=== PATIENT | male | born 1990 | race Caucasian/White ===

== ENCOUNTER 2016-11-05 00:29 | Emergency (ER) | payer OTHER ==
[2016-11-05 00:37] VITALS: RESP 16; TEMP 98.2; O2SAT 94
--- NOTE | 2016-11-05 01:14 | EDPHY ---
H & P Stated Complaint: worried about head injury post fall d/t intoxication and LOC 2 hours ago Time Seen by Provider: 11/05/16 00:53 HPI/ROS: HPI The patient presents with fall and headache which occurred at about 10:30 p.m. tonight. He was drinking alcohol and uses marijuana. He was walking down a flight of stairs to use the bathroom when his vision got blurry and he developed a headache. He fell landing on his face and lost consciousness. He says he then got up and could have fallen again. Afterwards he has had a left- sided frontal throbbing headache which has been constant and moderate in severity. He does not have changes to his vision, vomiting.. REVIEW OF SYSTEMS Constitutional: No fever, no chills. Eyes: No discharge. ENT: No sore throat. Cardiovascular: No chest pain, no palpitations. Respiratory: No cough, no shortness of breath. Gastrointestinal: No abdominal pain, no vomiting. Genitourinary: No hematuria. Musculoskeletal: No back pain. Skin: No rashes. Neurological: Positive for headache. PMHx: Healthy Soc Hx: Alcohol and marijuana use PHYSICAL General Appearance: Alert, no distress Head: Tenderness to his left frontal region without overlying skin changes Eyes: Pupils equal and round no pallor or injection ENT, Mouth: Mucous membranes moist Respiratory: There are no retractions, lungs are clear to auscultation Cardiovascular: Regular rate and rhythm Gastrointestinal: Abdomen is soft and non-tender, no masses, bowel sounds normal Neurological: A&O, cranial nerves 2-12 intact, 5/5 strength in upper and lower extremities which is symmetric moves all extremities Skin: Warm and dry, abrasion to left chin Musculoskeletal: Neck is supple non tender Extremities: symmetrical, full range of motion Psychiatric: Patient is oriented X 3, there is no agitation Source: Patient Exam Limitations: No limitations - Personal History Current Tetanus/Diphtheria Vaccine: Yes - Medical/Surgical History Hx Asthma: No Hx Chronic Respiratory Disease: No Hx Diabetes: No Hx Cardiac Disease: No Hx Renal Disease: No Hx Cirrhosis: No Hx Alcoholism: No Hx HIV/AIDS: No Hx Splenectomy or Spleen Trauma: No Other PMH: PSHx: wisdom tooth extraction. PMHx: denies - Social History Smoking Status: Never smoked Constitutional: Initial Vital Signs Temperature (C) 36.8 C 11/05/16 00:33 Heart Rate 108 H 11/05/16 00:33 Respiratory Rate 16 11/05/16 00:33 Blood Pressure 107/95 H 11/05/16 00:33 O2 Sat (%) 94 11/05/16 00:33 O2 Delivery Mode Room Air Allergies/Adverse Reactions: No Known Allergies Allergy (Unverified 11/05/16 00:33) Home Medications: Medication Instructions Recorded NK [No Known Home Meds] 11/05/16 Medical Decision Making - Diagnostics EKG Interpretation: EKG: Complete interpretation has been separately recorded in the [facility] archive. Summary impression: Normal sinus rhythm Imaging Results: CT of head noncontrast demonstrates no acute intracranial injury, discussed with the radiologist hall monitor. Imaging: Discussed imaging studies w/ order caller Radiologist Differential Diagnosis: This is a 25-year-old man who presents from home after drinking alcohol and using marijuana, then with a syncopal event leading to a fall, landing on his head. Now with a headache without any nausea vomiting or vision changes. Plan for EKG and CT scan of head. In the emergency room, the patient remained stable. EKG and CT of head were both unremarkable. I feel he is likely suffering from a concussion currently after having a syncopal event which seems to be vasovagal from alcohol and marijuana use tonight. He generally feels well with a mild headache. He can go home with his friend who is at the bedside. He will be discharged from the emergency room in good condition. Departure - Departure Disposition: Home, Routine, Self-Care Clinical Impression: Alcoholic intoxication Qualifiers: Complication of substance-induced condition: uncomplicated Qualified Code(s): F10.120 - Alcohol abuse with intoxication, uncomplicated Syncope Qualifiers: Syncope type: unspecified Qualified Code(s): R55 - Syncope and collapse Head injury Qualifiers: Encounter type: initial encounter Qualified Code(s): S09.90XA - Unspecified injury of head, initial encounter Condition: Good Instructions: Head Injury (ED) Referrals: Bella Simmons MD [Medical Doctor] - As per Instructions
--- NOTE | 2016-11-05 01:36 | CPEKG ---
Heart Rate: 71 RR Interval: 845 P-R Interval: 160 QRSD Interval: 96 QT Interval: 412 QTC Interval: 448 P [place]: 52 QRS [place]: 25 T Wave [place]: 23 EKG Severity - NORMAL ECG - EKG Impression: SINUS RHYTHM Electronically Signed By: Saritha Tejeda 05-Nov-2016 06:01:23
[2016-11-05 02:15] VITALS: BP 124/72; PULSE 77
== END 2016-11-05 02:15 | disposition home or self-care (01) ==
DX: S09.90XA Unspecified injury of head, initial encounter (principal); R55 Syncope and collapse; F10.120 Alcohol abuse with intoxication, uncomplicated; W18.09XA Striking against other object with subsequent fall, initial encounter; Y99.8 Other external cause status; Y93.01 Activity, walking, marching and hiking